=== PATIENT | female | born 1980 | race Caucasian/White ===

== ENCOUNTER 2017-12-31 09:44 | Outpatient (CLI) | payer BC ==
[~2017-12-31 09:44] MED LIST: ISOVUE-370 76%-LOCM 1 ML ONE
== END 2017-12-31 09:45 | disposition home or self-care (01) ==
LOC: BICCT 09:44
PROVIDERS: ATTEND Family Medicine
DX: R10.9 Unspecified abdominal pain (principal)
CPT/HCPCS: 74177

== ENCOUNTER 2018-09-07 09:03 | Outpatient (CLI) | payer BC ==
--- NOTE | 2018-09-07 11:27 | MMO ---
Bilateral MAMMO Bilat Diag [facility]DI+DEL. CLINICAL HISTORY: Patient is 38 years old and is seen for diagnostic exam and lump or thickening in the left breast at 3 o'clock. The patient has the following family history of breast cancer: maternal grandmother, GREAT. The patient has no personal history of cancer. VIEWS: The views performed were: bilateral craniocaudal with tomosynthesis; bilateral mediolateral oblique with tomosynthesis; and bilateral mediolateral. FILMS COMPARED: The present examination has been compared to prior imaging studies performed at MAMMOGRAM FINDINGS: The breasts are heterogeneously dense, which could obscure a lesion on mammography. There are no suspicious masses, suspicious calcifications, or new areas of architectural distortion. IMPRESSION: THERE IS NO MAMMOGRAPHIC EVIDENCE OF MALIGNANCY. A ROUTINE FOLLOW-UP MAMMOGRAM AT AGE 42 IS RECOMMENDED. THE RESULTS OF THIS EXAM WERE SENT TO THE PATIENT. ACR BI-RADS Category 1 - Negative MAMMOGRAPHY NOTE: 1. A negative mammogram report should not delay a biopsy if a dominant of clinically suspicious mass is present. 2. Approximately 10% to 15% of breast cancers are not detected by mammography. 3. Adenosis and dense breasts may obscure an underlying neoplasm.
--- NOTE | 2018-09-07 11:57 | ULT ---
LEFT BREAST ULTRASOUND: Comparison: Mammogram, 09-07-18 History: Intermittently palpable mass in the upper outer aspect of the left breast. Technique: Multiplanar grayscale and color doppler images were obtained in a left breast ultrasound. FINDINGS: Normal appearing breast parenchyma is seen at the area of palpable abnormality. No suspicious mass is seen. No suspicious shadowing is present. IMPRESSION: BIRADS category 1 - negative. Annual screening mammography is recommended. POS: [facility]
== END 2018-09-07 09:04 | disposition home or self-care (01) ==
LOC: BICMAMMO 09:03
PROVIDERS: ATTEND Family Medicine
DX: N63.21 Unspecified lump in the left breast, upper outer quadrant (principal); Z80.3 Family history of malignant neoplasm of breast
CPT/HCPCS: 77066; G0279

== ENCOUNTER 2018-09-15 06:27 | Outpatient (CLI) | payer BC ==
[2018-09-15 09:42] LABS: #Basophils 0.1 thou/uL (0.0-0.2); #Eosinphils 0.2 thou/uL (0.0-0.7); #Monocytes 0.3 thou/uL (0.11-0.59); #Neutrophils 1.9 thou/uL (1.40-6.50); %Basophils 1.9 % (0.0-1.0); %Lymphocytes 29.1 % (21.0-51.0); %Monocytes 7.3 % (0.0-10.0); %Neutrophils 56.8 % (42.0-75.0); Hemoglobin 13.5 g/dL (12.0-16.0); Mean Corpuscular HGB CONC 33.8 g/dL (32.0-36.0); Mean Corpuscular Hemoglobin 29.6 pg (27.0-31.0); Mean Corpuscular Volume 87.6 fL (78.0-98.0); Platelet Count 153 thou/uL (130-400); RBC Distribution Width 11.8 % (11.5-14.5); Red Blood Cell (RBC) Count 4.57 mill/uL (4.20-5.40); White Blood Cell (WBC) Count 3.4 thou/uL (4.8-10.8)
== END 2018-09-15 06:28 | disposition home or self-care (01) ==
LOC: LABBT 06:27
PROVIDERS: ATTEND Surgery
DX: Z01.812 Encounter for preprocedural laboratory examination (principal); D17.1 Benign lipomatous neoplasm of skin and subcutaneous tissue of trunk
CPT/HCPCS: 85025

== ENCOUNTER 2018-09-17 05:56 | Day surgery (SDC) | payer BC ==
[2018-09-15 08:56] VITALS: BMI 32.4
[2018-09-17] MEDS ORDERED: Fentanyl 100 MCG/2 ML VIAL ONE (06:39)
[2018-09-17] MEDS ORDERED: Midazolam HCl 2 mg/2 ml Vial ONE (06:39)
[2018-09-17] MEDS ORDERED: Bupivacaine/Epinephrine 0.25% 30 ML VIAL ONE (08:21)
--- NOTE | 2018-09-17 12:34 | OP ---
DATE OF PROCEDURE: 09/17/2018 PREOPERATIVE DIAGNOSIS: Lipoma of left back. PROCEDURE PERFORMED: Excisional biopsy. INDICATIONS: A 38-year-old female with an enlarging soft tissue mass of the left lower back. FINDINGS: 10 x 6 x 2 cm multilobular lipoma of the left lower back. DESCRIPTION OF PROCEDURE: After informed consent was obtained, the patient was taken to the operating room, given general mask anesthesia, placed in the right lateral decubitus position. Pressure points padded. Her back was prepped and draped in usual fashion. Local anesthesia infiltrated subcutaneously and deep. A transverse incision performed. Subcu divided sharply. The capsule was incised and using careful digital dissection, it was removed from its pockets and then excised from the back. Hemostasis achieved with electrocautery. The wound irrigated. Irrigation fluid removed. Subcu reapproximated with interrupted 3-0 Vicryl. Skin closed with interrupted 3-0 Vicryl in the dermis and then a running subcuticular 4-0 Rapide. Dermabond applied. The patient tolerated the procedure well and transferred to Recovery in good condition. Sponge and needle count verified correct x2. Job ID: [id number]
[2018-09-17] MEDS ORDERED: Lidocaine 1% PF 5 ML VIAL ONE (13:15)
[2018-09-17] MEDS ORDERED: PROPOFOL 200 MG/20 ML VIAL ONE (13:15)
[2018-09-17] MEDS ORDERED: Ondansetron PF 4 MG/2 ML Vial ONE (13:15)
[2018-09-17] MEDS ORDERED: Ketorolac Tromethamine 30 MG/ML VIAL ONE (13:15)
[2018-09-17] MEDS ORDERED: Dexamethasone 20 MG/5 ML VIAL ONE (13:15)
== END 2018-09-17 10:20 | disposition home or self-care (01) ==
LOC: SDC 05:56
PROVIDERS: ATTEND Surgery
PROC: 0JB70ZZ Excision of Back Subcutaneous Tissue and Fascia, Open Approach (ICD-10-PCS; principal; 2018-09-17)
DX: D17.1 Benign lipomatous neoplasm of skin and subcutaneous tissue of trunk (principal); E28.2 Polycystic ovarian syndrome; F41.0 Panic disorder [episodic paroxysmal anxiety]; F41.9 Anxiety disorder, unspecified; G44.209 Tension-type headache, unspecified, not intractable
CPT/HCPCS: 88304; J0690; J1100; J1885; J2001; J2250; J2405; J2704; J3010